=== PATIENT | female | born 1990 | race Caucasian/White ===

== ENCOUNTER 2021-02-25 16:42 | Emergency (ER) | payer OTHER ==
[~2021-02-25] VITALS: Ht 175.3 cm; Wt 81.7 kg
[~2021-02-25 16:42] MED LIST: BIRTH CONTROL; CYCL10 PO; HYDACE5 PO; IBUP800 PO; METF500 PO; OXYACE5T PO
== END 2021-02-25 17:58 | disposition home or self-care (01) ==
LOC: ER 16:42
DX: S61.012A Laceration without foreign body of left thumb without damage to nail, initial encounter (principal); W45.8XXA Other foreign body or object entering through skin, initial encounter
CPT/HCPCS: 12001; 99282-25

== ENCOUNTER → 2022-06-05 | Outpatient (CLI) | payer OTHER | LOC: LAB SHORT 08:30 → PLD 08:30 → LAB 08:30 | DX: N87.1 Moderate cervical dysplasia (principal) | CPT/HCPCS: 88305; 88342 ==

== ENCOUNTER → 2022-06-27 | Outpatient (CLI) | payer OTHER | LOC: LAB SHORT 08:02 → PLD 08:02 | DX: R87.614 Cytologic evidence of malignancy on smear of cervix (principal) | CPT/HCPCS: 88305 ==

== ENCOUNTER 2022-12-20 11:19 | Day surgery (SDC) | payer OTHER ==
[2022-12-18 13:14] LABS: BASOPHILS ABSOLUTE AUTO 0.04 K/mm3 (0.00-0.23); BASOPHILS PERCENT AUTO 1 % (0-2); EOSINOPHILS ABSOLUTE AUTO 0.29 K/mm3 (0.00-0.68); EOSINOPHILS PERCENT AUTO 5 % (0-6); Hematocrit 36.3 % (33.0-51.0); Hemoglobin 12.4 g/dL (11.5-16.0); IMMATURE GRAN PERCENT AUTO 0 % (0-1); LYMPHOCYTES ABSOLUTE AUTO 1.65 K/mm3 (0.84-5.20); LYMPHOCYTES PERCENT AUTO 30 % (21-46); MONOCYTES ABSOLUTE AUTO 0.38 K/mm3 (0.16-1.47); MONOCYTES PERCENT AUTO 7 % (4-13); Mean Corpuscular HGB 32.4 pg (26.0-34.0); Mean Corpuscular HGB Conc 34.2 g/dL (31.5-36.5); Mean Corpuscular Volume 95 fL (80-100); Mean Platelet Volume 11.3 fL (9.1-12.4); NEUTROPHILS ABSOLUTE AUTO 3.06 K/mm3 (1.96-9.15); NEUTROPHILS PERCENT AUTO 57 % (41-73); Platelet Count 261 K/mm3 (150-400); RDW Coefficient Variation 12.4 % (11.7-14.2); Red Blood Cell Count 3.83 M/mm3 (3.80-5.20); White Blood Cell Count 5.42 K/mm3 (4.00-11.30)
[~2022-12-20] VITALS: Ht 175.3 cm; Wt 99.5 kg
[2022-12-20] VITALS (10 sets, daily range): BP systolic 111–130; BP diastolic 59–78
--- NOTE | 2022-12-20 14:01 | NUR ---
AMBULATE TO DAY SURGERY. CONFIRMED SURGERY AND SUGEON. PRO OP TEACHING DONE. AT BEDSIDE. History, Chart, Medications and Allergies reviewed before start of procedure.
--- NOTE | 2022-12-20 18:27 | NUR ---
PATIENT ARRIVED TO UNIT TODAY AT 182. POD 0 LAP HYSTER PATIENT IS A&OX4. VS ARE WNL AND IS ON RA. PATIENT DENIES PAIN AT THIS TIME. HER ABD HAS X4 LAP SITES WITH WOUND GLUE THAT ARE C/D/I. ROSE WAS D/C'D ALSO AT THIS TIME. SHE IS TOLERATING SMALL AMOUNTS OF PO INTAKE. HER HANNAH PAD HAS SCANT AMOUNT OF BLOOD ON IT. PATIENT WAS A SBA FROM THE BED TO THE BATHROOM. PATIENT IS NOW LAYING IN BED WITH CALL LIGHT IN REACH.
[2022-12-21 00:09] VITALS: BP 117/76
[2022-12-21 04:21] VITALS: BP 119/72
[2022-12-21 04:42] LABS: BASOPHILS ABSOLUTE AUTO 0.02 K/mm3 (0.00-0.23); BASOPHILS PERCENT AUTO 0 % (0-2); EOSINOPHILS PERCENT AUTO 0 % (0-6); Hematocrit 34.4 % (33.0-51.0); Hemoglobin 11.9 g/dL (11.5-16.0); IMMATURE GRAN ABSOLUTE AUTO 0.04 K/mm3 (0.00-0.10); IMMATURE GRAN PERCENT AUTO 0 % (0-1); LYMPHOCYTES ABSOLUTE AUTO 0.89 K/mm3 (0.84-5.20); LYMPHOCYTES PERCENT AUTO 7 % (21-46); MONOCYTES ABSOLUTE AUTO 0.68 K/mm3 (0.16-1.47); MONOCYTES PERCENT AUTO 5 % (4-13); Mean Corpuscular HGB 32.5 pg (26.0-34.0); Mean Corpuscular HGB Conc 34.6 g/dL (31.5-36.5); Mean Corpuscular Volume 94 fL (80-100); Mean Platelet Volume 11.3 fL (9.1-12.4); NEUTROPHILS ABSOLUTE AUTO 11.19 K/mm3 (1.96-9.15); NEUTROPHILS PERCENT AUTO 87 % (41-73); Platelet Count 265 K/mm3 (150-400); RDW Coefficient Variation 11.9 % (11.7-14.2); RDW Standard Deviation 41.3 fL (35.1-46.3); Red Blood Cell Count 3.66 M/mm3 (3.80-5.20); White Blood Cell Count 12.82 K/mm3 (4.00-11.30)
--- NOTE | 2022-12-21 07:24 | NUR ---
shift summary noc. PT POST OP DAY 1 FOR TOTAL LAP HYSTERECTOMY. PT'S PAIN CONTROLLED WITH PERCOCET WITH GOOD RELIEF. 4 LAP SITES WITH WOUND GLUE ARE CLEAN, DRY, AND INTACT. HANNAH PAD HAS SCANT LIGHT PINK BLOOD PRESENT. PT VOIDING AFTER ROSE WAS D/C'D YESTERDAY AM SHIFT. PT TOLERATING PO INTAKE WITHOUT NAUSEA. PT A/O X4 AND RESTED WITH EYES CLOSED AND CALL LIGHT IN REACH.
[2022-12-21 08:11] VITALS: BP 115/70
[2022-12-21] MEDS ORDERED: IBUP400 PO (10:59)
[2022-12-21] MEDS ORDERED: OXYCODONE-ACET1 EAC3 PO (10:59)
[2022-12-21] MEDS ORDERED: SIME80CH PO (11:00)
[2022-12-21] MEDS ORDERED: PROM25 PO (11:00)
--- NOTE | 2022-12-21 11:46 | NUR ---
DISCHARGE: PACKET PRINTED AND PT EDUCATED. PT LEFT UNIT VIA WHEELCHAIR WITH WITH RN AT 1111
== END 2022-12-21 11:24 | disposition home or self-care (01) ==
LOC: ORSCMMR 11:19 → ORD 11:30 → ORSCMMR 12:45 → ORD 12:45 → SURS 18:05 → ORSCMMR 12-21 11:24
PROVIDERS: Obstetrics & Gynecology
PROC: 0U5F4ZZ Destruction of Cul-de-sac, Percutaneous Endoscopic Approach (ICD-10-PCS; principal; 2022-12-20 12:45)
PROC: 0UT7FZZ Resection of Bilateral Fallopian Tubes, Via Natural or Artificial Opening With Percutaneous Endoscopic Assistance (ICD-10-PCS; principal; 2022-12-20 12:45)
PROC: 0UT9FZZ Resection of Uterus, Via Natural or Artificial Opening With Percutaneous Endoscopic Assistance (ICD-10-PCS; principal; 2022-12-20 12:45)
DX: N80.30 Endometriosis of pelvic peritoneum, unspecified (principal); R87.610 Atypical squamous cells of undetermined significance on cytologic smear of cervix (ASC-US); E28.2 Polycystic ovarian syndrome; N93.8 Other specified abnormal uterine and vaginal bleeding; D50.0 Iron deficiency anemia secondary to blood loss (chronic); Z87.891 Personal history of nicotine dependence
CPT/HCPCS: 36415; 84702; 85025; 88305; 88307; A9270; J0690; J1100; J1170; J1885; J2250; J2405; J2704; J3010; J7050; J7120

== ENCOUNTER 2024-11-19 10:12 | Emergency (ER) | payer OTHER ==
[~2024-11-19] VITALS: Ht 172.7 cm; Wt 100.2 kg
[~2024-11-19 10:12] MED LIST changes: +IBUP400 PO; +OXYCODONE-ACET1 EAC3 PO; +PROM25 PO; +SIME80CH PO
[2024-11-19 10:54] LABS: BASOPHILS ABSOLUTE AUTO 0.04 K/mm3 (0.00-0.23); BASOPHILS PERCENT AUTO 0 % (0-2); EOSINOPHILS ABSOLUTE AUTO 0.30 K/mm3 (0.00-0.68); EOSINOPHILS PERCENT AUTO 3 % (0-6); Hematocrit 42.5 % (33.0-51.0); Hemoglobin 14.7 g/dL (11.5-16.0); IMMATURE GRAN ABSOLUTE AUTO 0.02 K/mm3 (0.00-0.10); IMMATURE GRAN PERCENT AUTO 0 % (0-1); LYMPHOCYTES ABSOLUTE AUTO 2.58 K/mm3 (0.84-5.20); LYMPHOCYTES PERCENT AUTO 28 % (21-46); MONOCYTES ABSOLUTE AUTO 0.62 K/mm3 (0.16-1.47); MONOCYTES PERCENT AUTO 7 % (4-13); Mean Corpuscular HGB Conc 34.6 g/dL (31.5-36.5); Mean Corpuscular Volume 95 fL (80-100); NEUTROPHILS ABSOLUTE AUTO 5.79 K/mm3 (1.96-9.15); NEUTROPHILS PERCENT AUTO 62 % (41-73); NRBC ABSOLUTE 0.00 K/mm3 (0.00-0.02); NRBC Auto 0.0 /100 WBC (0.0-0.2); Platelet Count 252 K/mm3 (150-400); RDW Coefficient Variation 11.9 % (11.7-14.2); RDW Standard Deviation 41.4 fL (35.1-46.3)
[2024-11-19] MEDS ORDERED: DiphenhydrAMINE HCl 50 MG/ML 1ML Vial IV ONE (11:00)
[2024-11-19] MEDS ORDERED: NS 500 ML IV SCH (11:00)
[2024-11-19] MEDS ORDERED: Ketorolac Tromethamine 30mg Vial IV ONE (11:00)
[2024-11-19] MEDS ORDERED: Metoclopramide HCl 5MG / ML 2ML Vial IV ONE (11:00)
[2024-11-19 11:09] LABS: Alanine Aminotransfer (ALT/SGP 30.0 U/L (12-78); Albumin, Blood 4.3 g/dL (3.4-5.0); Albumin/Globulin Ratio 1.2 (0.8-1.8); Anion Gap 6.0 mmol/L (3-11); Aspartate Aminotrans (AST/SGOT 14.0 U/L (12-37); Bilirubin, Total 0.4 mg/dL (0.1-1.0); Blood Urea Nitrogen 13.0 mg/dL (8-24); CO2, Blood 26.0 mmol/L (21-32); Calcium, Blood 9.1 mg/dL (8.5-10.1); Chloride, Blood 107.0 mmol/L (98-108); Creatinine, Blood 0.83 mg/dL (0.40-1.00); Globulin, Blood 3.5 g/dL (2.2-4.0); Glucose, Blood 96.0 mg/dL (70-99); Potassium, Blood 4.3 mmol/L (3.5-5.5); Sodium, Blood 135.0 mmol/L (136-145); Total Protein, Blood 7.8 g/dL (6.4-8.2)
[2024-11-19 12:41] LABS: C-REACTIVE PROTEIN, EXT RANGE <0.290 mg/dL (0.000-0.300); Magnesium, Blood 1.9 mg/dL (1.6-2.4)
[2024-11-19 14:02] VITALS: BP 128/83
[2024-11-19] MEDS ORDERED: VALTREX500 MG PO (14:02)
[2024-11-19] MEDS ORDERED: PRED20 PO (14:02)
== END 2024-11-19 14:38 | disposition home or self-care (01) ==
LOC: ER 10:12
PROVIDERS: Emergency Medicine; Student in an Organized Health Care Education/Training Program
DX: R20.3 Hyperesthesia (principal); R51.9 Headache, unspecified; F17.200 Nicotine dependence, unspecified, uncomplicated; Z79.899 Other long term (current) drug therapy; Z88.0 Allergy status to penicillin
CPT/HCPCS: 70450; 71046; 80053; 83735; 84703; 85025; 85651; 86140; 96374; 96375; 99284-25; A9270; J1200; J1885; J2765; J7030; J7512